=== PATIENT | female | born 1950 | race Caucasian/White ===

== ENCOUNTER → 2016-09-04 | Outpatient (CLI) | payer OTHER ==
[~2016-09-04] MED LIST: CELEXA; GLUCOPHAGE XR500 MG; LIPITOR; LOPID600 MG; NEXIUM; SYNTHROID
== END ==
LOC: RAD 08-31 18:15
DX: Z12.31 Encounter for screening mammogram for malignant neoplasm of breast (principal)

== ENCOUNTER → 2017-01-17 | Outpatient (CLI) | payer OTHER | LOC: ULTRA 13:59 | DX: N63 Unspecified lump in breast (principal) ==

== ENCOUNTER → 2017-04-11 | Outpatient (CLI) | payer OTHER | LOC: RAD 14:18 | DX: E04.1 Nontoxic single thyroid nodule (principal); M47.895 Other spondylosis, thoracolumbar region; Z79.899 Other long term (current) drug therapy; R06.02 Shortness of breath ==

== ENCOUNTER → 2017-12-05 | Outpatient (CLI) | payer OTHER | LOC: RAD 01:43 | DX: Z12.31 Encounter for screening mammogram for malignant neoplasm of breast (principal) ==

== ENCOUNTER → 2018-11-06 | Outpatient (CLI) | payer OTHER | LOC: RAD 13:14 | DX: R92.8 Other abnormal and inconclusive findings on diagnostic imaging of breast (principal); Z85.3 Personal history of malignant neoplasm of breast ==

== ENCOUNTER → 2018-12-18 | Outpatient (CLI) | payer OTHER | LOC: RAD 13:01 | DX: Z12.31 Encounter for screening mammogram for malignant neoplasm of breast (principal) ==

== ENCOUNTER → 2018-12-26 | Outpatient (CLI) | payer OTHER | LOC: ULTRA 00:22 → RAD 00:22 → ULTRA 15:20 | DX: N63.20 Unspecified lump in the left breast, unspecified quadrant (principal) ==

== ENCOUNTER → 2019-06-04 | Outpatient (CLI) | payer OTHER ==
[~2019-06-04] MED LIST changes: +AMARYL4 MG PO; +ASA81BEC PO; +CELEXA20 MG PO; +CO-ENZYME Q-1010 MG PO; +FISH OIL 1,0001 EAC9 PO; +LEVOTHYROXIN0.137 M1 PO; +LOSARTAN POTAS100 MG PO; +MULTI VITAMIN1 EACH PO; +NEXIUM40 MG PO; +NORVASC5 MG PO; +VITAMIN D32000 UNIT PO; +ZOCOR20 MG PO
== END ==
LOC: BC 09:08
DX: E04.2 Nontoxic multinodular goiter (principal); N63.42 Unspecified lump in left breast, subareolar

== ENCOUNTER → 2019-06-11 | Outpatient (CLI) | payer OTHER ==
--- NOTE | 2019-06-15 13:08 | PATH ---
[facility] [place] [address] PATHOLOGY RPT PROCEDURE Name: COLEEN ROME Room #: REG [facility].#: [id number] Admission: 06/11/19 Date of : 46 Discharge: Report #: [id number] Path Case #: [id number] Note [facility] Accession Number: [id number] TESTS RESULT FLAG UNITS REF RANGE LAB Clinician Provided Cytology Information No. of containers..01 Other (Miscellaneous) Source: MID NODULE THYROID DIAGNOSIS: MID NODULE THYROID, FINE NEEDLE ASPIRATION NEGATIVE FOR MALIGNANT CELLS. BETHESDA CATEGORY II. SPECIMEN CONSISTS OF ABUNDANT GROUPS OF FOLLICULAR CELLS, HEMOSIDERIN-LADEN MACROPHAGES, SCANT COLLOID AND BLOOD. THE PATTERN IS COMPATIBLE WITH ADENOMATOID NODULE. COLLOID IS PRESENT. THIS INTERPRETATION INCLUDES EVALUATION OF A CELL BLOCK. Comment: Examination shows groups of macro and microfollicles with scant colloid and rare hemosiderin-laden macrophages. 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 Nuclear features of papillary thyroid carcinoma are not identified. Please note sample may not be entirely customer engagement representative. Correlate clinically and follow-up as indicated. Pathologist ICD10: 02 E04.1 Signed out by: 02 Lourdes Thompson MD, Pathologist NPI- [id number] Performed by: Ernestina De Paz, Hereditary Cancer Program Coordinator ([facility]) Gross description: 09 20 ML, DEMOND, CLEAR /LCS 09/01/1840 0000 Local FLAG LEGEND: L-Low Normal,H-High Normal,LL-Alert Low,HH-Alert High <-Panic Low,>-Panic High,A-Abnormal,AA-Critical Abnormal Performed at: [facility] [address] [place] [address] Edward Brandt MD, 02 [facility] [address] [address] [address] PATHOLOGY RPT PROCEDURE Name: COLEEN ROME Room #: REG [facility].#: [id number] Admission: 06/11/19 Date of : 46 Discharge: Report #: [id number] Path Case #: [id number] Lourdes Thompson MD, Specimen Comment: A courtesy copy of this report has been sent to Specimen Comment: [phone]. Specimen Comment: Report sent to Specimen Comment: A duplicate report has been generated due to demographic updates. Performed at: 01 [facility] [id number], [place], [place] [id number] MD Edward Brandt MD Phone: [phone]
== END | disposition home or self-care (01) ==
LOC: ULTRA 10:05
DX: E04.1 Nontoxic single thyroid nodule (principal); Z98.890 Other specified postprocedural states; Z79.899 Other long term (current) drug therapy; Z88.2 Allergy status to sulfonamides; Z88.6 Allergy status to analgesic agent; Z88.8 Allergy status to other drugs, medicaments and biological substances; Z88.0 Allergy status to penicillin

== ENCOUNTER → 2019-06-23 | Outpatient (CLI) | payer OTHER ==
[~2019-06-23] MED LIST changes: -AMARYL4 MG PO; -ASA81BEC PO; -CELEXA20 MG PO; -CO-ENZYME Q-1010 MG PO; -FISH OIL 1,0001 EAC9 PO; -LEVOTHYROXIN0.137 M1 PO; -LOSARTAN POTAS100 MG PO; -MULTI VITAMIN1 EACH PO; -NEXIUM40 MG PO; -NORVASC5 MG PO; -VITAMIN D32000 UNIT PO; -ZOCOR20 MG PO
--- NOTE | 2019-06-29 12:06 | PATH ---
[facility] [address] [address] PATHOLOGY RPT PROCEDURE Name: SANTY ROME Room #: REG [facility] M.R.#: [id number] Admission: 06/23/19 Date of : 46 Discharge: Report #: [id number] Path Case #: [id number] [facility] Accession Number: [id number] . 01 Material submitted: . breast - LEFT MEDIAL BREAST NODULE. Modifiers: left . 01 Clinical history: . Left breast nodule History of right breast cancer . 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 - BACKGROUND BREAST TISSUE SHOWING PROLIFERATIVE FIBROCYSTIC CHANGES INCLUDING RADIAL SCAR, COLUMNAR CELL HYPERPLASIA ASSOCIATED WITH ATYPICAL DUCTAL HYPERPLASIA WELL DUCTAL CARCINOMA IN SITU (OF CRIBRIFORM TYPE). . (IUV:mml; 06/24/2019) QLM 06/24/2019 1412 Local . 02 Comment: Specimen type: Needle core biopsy Tumor site: Left breast medial Tumor quantitation: 0.5 cm Histologic type: Invasive ductal carcinoma Histologic grade: Grade 2 Tubules, nuclei and mitoses: 3, 2 and 1, respectively LVSI: Not identified Microcalcifications: Not identified Markers: ER, MS, HER-2/milena and Ki-67 Block: A1 . Co-review: Slide A1-level 7, A2-level [address] Karin Sparrow . Findings of this case telephoned to Ms. Dorene Bailey in our breast center on the morning of 06/24/2019. . (IUV:mml; 06/24/2019) . 02 Addendum: . Special studies report received from [facility], [address] [place] [address], [address], [place], [address], on case [id number], labeled with their number [id number], dated 06/26/2019. [place] [address] PATHOLOGY RPT PROCEDURE Name: SANTY ROME Room #: REG GIOVANNI Fraga#: [id number] Admission: 06/23/19 Date of : 46 Discharge: Report #: [id number] Path Case #: [id number] Breast/Prognostic Marker Analysis . Specimen Site: Lt Breast, Medial Nodule, Needle Core Biopsy, Breast Cancer Specimen ID #: [id number] . ER (Estrogen Receptor) Present/Positive Percent: 96.00% Analysis: Manual Comments: Staining Intensity: Strong . MS (Progesterone Receptor) Present/Positive Percent: 85.00% Analysis: Manual Comments: Staining Intensity: Weak To Strong . HER2 Not Over-Expressed Score: 1+ Analysis: Manual . Ki-67 Borderline Proliferation Percent: 20.00% Analysis: Manual . Type of Fixative: 10% Neutral Buffered Formalin . at [facility]. Anuj Malone MD Pathologist . Methodology The HER2 Receptor protein expression is analyzed using the Lyons HER2 rabbit monoclonal antibody (clone 4B5). This assay is used for diagnostic determination of the HER2 protein over-expression in paraffin embedded, formalin fixed breast cancer tissue on the [employer] Benchmark. The specimen is processed using a secondary antibody-HRP conjugate detection system. The membrane staining of the tumor is determined either by manual score or image analysis. This antibody is intended for in vitro diagnostic use. The score is reported as 0, 1+, 2+, or 3+. This test is used for clinical purposes. . A rabbit monoclonal antibody (clone SP1) that recognized the Estrogen Receptor is used to perform immunohistochemistry on routinely fixed (formalin) paraffin embedded tissue on the [employer] Benchmark[place] [address] PATHOLOGY RPT PROCEDURE Name: WILDSANTY HARLEYE Room #: REG [facility] Fraga#: [id number] Admission: 06/23/19 Date of : 46 Discharge: Report #: [id number] Path Case #: [id number] is processed using a secondary antibody-HRP conjugate detection system. The percentage of stained tumor nuclei is determined either manually or by image analysis. This test is intended for in vitro diagnostic use. This test is used for clinical purposes. . A rabbit monoclonal antibody (clone 1E2) that recognized the Progesterone Receptor is used to perform immunohistochemistry on routinely fixed (formalin) paraffin embedded tissue on the [employer]ons Benchmark. The specimen is processed using a secondary antibody-HRP conjugate detection system. The percentage of stained tumor nuclei is determined either manually or by image analysis. This test is intended for in vitro diagnostic use. This test is used for clinical purposes. . A rabbit monoclonal antibody (clone 30-9) that recognized Ki67 is used to perform immunohistochemistry on routinely fixed (formalin) paraffin embedded tissue on the [employer]ons Benchmark. The specimen is processed using a secondary antibody-HRP conjugate detection system. The percentage of stained tumor nuclei is determined either manually or by image analysis. This test is intended for in vitro diagnostic use. This test is used for clinical purposes. . Intended Use: This antibody is intended for in vitro diagnostic (IVD) use. HER2 (4B5) is a rabbit monoclonal antibody intended for the semi-quantitative detection of HER2 antigen in sections of formalin-fixed, paraffin embedded normal and neoplastic tissue. . This antibody is intended for in vitro diagnostic (IVD) use. Estrogen Receptor (ER) (SP1) is a rabbit monoclonal antibody (IgG) that is intended for the qualitative detection of estrogen receptor (ER) antigen in sections of formalin-fixed, paraffin-embedded tissue. ER is a rabbit monoclonal antibody that recognizes human estrogen receptor alpha. . This antibody is intended for in vitro diagnostic (IVD) use. Progesterone Receptor (MS) (1E2) is a rabbit monoclonal antibody (IgG) that is intended for the qualitative detection of progesterone receptor (MS) antigen in sections of formalin fixed, paraffin embedded tissue. MS is a rabbit monoclonal antibody that recognizes the A and B forms of the human progesterone receptor. . This antibody is intended for in vitro diagnostic (IVD) use. Ki-67 (30-9) is a rabbit monoclonal antibody (IgG) directed against C-terminal portion of Ki-67 antigen. Staining for Ki-67 can be used to aid in assessing the proliferative activity of normal and neoplastic tissue. Ki-67 is a nuclear protein expressed in proliferating cells. During the cell cycle, the Ki-67 antigen is present in the G1, S, G2 and M phase but is absent in the G0 (quiescent phase). . [facility] [address] [place] [address] PATHOLOGY RPT PROCEDURE Name: SANTY ROME Room #: REG [facility] M..#: [id number] Admission: 06/23/19 Date of : 46 Discharge: Report #: [id number] Path Case #: [id number] . Disclaimer: This Test was performed by [employer] [employer] at [address], [facility]. . [facility] [employer] is a business unit of [employer]. a wholly-owned subsidiary of [employer]. . This assay has not been validated on decalcified tissues. Results should be interpreted with caution if this specimen was decalcified given the likelihood of false negativity on decalcified specimens. . Any image(s) that accompany this report is/are a utility sales representative image(s) only and should not be used to render a diagnosis. . This interpretation is contingent on the specimen and the clinical information received. . For any special tests/stains performed, known positive cells or tissues are tested with each marker and examined to ensure positivity. Positive and negative internal controls, if present, react appropriately. . This analysis is an adjunct to the evaluation of the referring physician and does not represent a final diagnosis. . The immunohistochemistry tests performed at [employer] were validated on tissue fixed in 10% neutral buffered formalin. The performance characteristics of the tests performed on tissue processed in other fixatives is not known. . HER2 testing at [employer] is performed in compliance with the 2018 updated ASCO/CAP Clinical Practice Guideline Focused Update. If the result is EQUIVOCAL (2+), it must be confirmed by an alternative assay such as FISH or Dual BENNY. . REF: Julissa NUNO, RUBIA Valadez et al: Human Epidermal Growth Factor Receptor 2 Testing in Breast Cancer: ASCO/CAP Clinical Practice Guideline Focused Update. J Clin Oncol 36:6879-4672, 2018. . HER2 and ER/MS ASCO/CAP guidelines require fixation in neutral buffered formalin for a minimum of 6 and a maximum of 72 hours. Fixation times less than 6 hours may not adequately preserve cell proteins. Fixation times longer than 72 hours may cause excess cross-linking of proteins reducing the antigen available for staining. Either scenario can cause reduced staining; hence false negative results are possible and should be considered for these situations if the HER2 IHC score is less than 3+ or ER or MS is negative (no staining or <1% positive). It is recommended that [address] [address] PATHOLOGY RPT PROCEDURE Name: WILDSANTY JEFFERSON Room #: REG CLManjit Fraga#: [id number] Admission: 06/23/19 Date of : 46 Discharge: Report #: [id number] Path Case #: [id number] specimens fixed longer than 72 hours with HER2 IHC scores less than 3+ be confirmed by HER2 FISH or Dual BENNY. The time from biopsy/excision to fixation in formalin (cold ischemic time) must be less than 1 hour. Time to fixation (cold ischemic time) greater than 1 hour should be interpreted with caution. HER2 testing, mainly HER2 by FISH, is particularly vulnerable since excessive cold ischemic time results in preferential loss of HER2 probe signals that may lead to false negative results. . SCORE STAINING PATTERN IN TUMOR CELLS INTERPRETATION RESULTS 0 No staining observed or incomplete, faint membrane staining in less than or equal to 10% of tumor cells. Negative 1+ Incomplete, faint membrane staining in greater than 10% of tumor cells. Negative 2+ Weak to moderate complete membrane staining observed in greater than 10% of tumor cells. Equivocal* *Must be confirmed by alternative assay (IHC/FISH/Dual BENNY) 3+ Intense, complete membrane staining in greater than 10% of tumor cells. Positive . A complete copy of the report is on file. . Professional and Technical services performed by [employer]. at [address] [place] [address]. . (IUV:amj 06/26/2019) . LBQ/06/26/2019 Addendum Electronically Signed by Lourdes Thompson MD, Pathologist . 02 Electronically signed: . Lourdes Thompson MD, Pathologist NPI- [id number] . 01 Gross description: . Received in formalin labeled "[place], Santy, left," and additionally labeled on the requisition as "medial breast," are multiple needle cores of yellow-morris fibrofatty tissue measuring 5.8 x 4.9 x 0.8 cm in aggregate dimensions. The tissue is submitted in its entirety in cassettes A1-A3. The cold ischemic time is 2 minutes. The total formalin fixation time is 10 hours. (TSD; 06/23/2019) TOB/TOB 06/24/[address] [address] PATHOLOGY RPT PROCEDURE Name: SANTY ROME Room #: REG GIOVANNI Navarro.#: [id number] Admission: 06/23/19 Date of : 46 Discharge: Report #: [id number] Path Case #: [id number] . 02 Pathologist provided ICD-10: C50.912, D05.12, N60.12, N60.92 . 02 CPT . 550482 Specimen Comment: A courtesy copy of this report has been sent to Specimen Comment: [phone], . Specimen Comment: Report sent to / DR MURILLO Performed at: [address] [facility] [address], [place], [place] [id number] MD Edward Brandt MD Phone: [phone] Performed at: [address] [facility] [address] [id number] MD Lourdes Thompson MD Phone: [phone]
== END | disposition home or self-care (01) ==
LOC: RAD 01:58
DX: R92.2 Inconclusive mammogram (principal); C50.912 Malignant neoplasm of unspecified site of left female breast; N60.12 Diffuse cystic mastopathy of left breast; N60.92 Unspecified benign mammary dysplasia of left breast; Z98.890 Other specified postprocedural states; Z88.0 Allergy status to penicillin; Z88.2 Allergy status to sulfonamides; Z88.8 Allergy status to other drugs, medicaments and biological substances; Z79.899 Other long term (current) drug therapy

== ENCOUNTER → 2019-07-23 | Outpatient (CLI) | payer OTHER ==
[~2019-07-23] VITALS: Ht 167.6 cm; Wt 102.5 kg
[~2019-07-23] MED LIST changes: +AMARYL4 MG PO; +ASA81BEC PO; +CELEXA20 MG PO; +CO-ENZYME Q-1010 MG PO; +FISH OIL 1,0001 EAC9 PO; +LEVOTHYROXIN0.137 M1 PO; +LOSARTAN POTAS100 MG PO; +MULTI VITAMIN1 EACH PO; +NEXIUM40 MG PO; +NORVASC5 MG PO; +VITAMIN D32000 UNIT PO; +ZOCOR20 MG PO
--- NOTE | 2019-07-27 17:06 | PATH ---
[facility] [address] [address] PATHOLOGY RPT PROCEDURE Name: SANTY ROME Room #: REG [facility] M..#: [id number] Admission: 07/23/19 Date of : 46 Discharge: Report #: [id number] Path Case #: [id number] L[facility] Accession Number: [id number] . 01 Material submitted: . PART A: colon - POLYP AT PROXIMAL ASCENDING COLON. Modifiers: proximal, ascending PART B: colon - POLYP AT MID TRANSVERSE COLON. Modifiers: mid, transverse PART C: colon - POLYP AT 50CM X2 PART D: colon - POLYP AT 20CM . 01 Clinical history: . Preop DX: Screening Postop DX: Colon polyps, small hemorrhoids . 02 Diagnosis: A. Polyp, at proximal ascending colon, endoscopic biopsy: - Inflamed hyperplastic polyp. - Negative for dysplasia. . B. Polyp, at mid transverse colon, endoscopic biopsy: - Minute tubular adenoma. - Negative for high-grade dysplasia. . C. Polyp x2, at 50 cm, endoscopic biopsy: - Tubular adenoma identified in multiple fragments. - Negative for high-grade dysplasia. . D. Polyp, at 20 cm, endoscopic biopsy: - Hyperplastic polyp. - Negative for dysplasia. . (IUV:primary clinician; 07/27/2019) MBR 07/27/2019 1307 Local . 02 Electronically signed: . Lourdes Thompson MD, Pathologist NPI- [id number] . 01 Gross description: . A. Received in formalin labeled "Santy Rome, polyp at proximal ascending," are two segments of botello-brown soft tissue measuring 0.3 x 0.2 x 0.1 cm and 0.4 x 0.3 x 0.2 cm in greatest dimensions. The specimen is submitted entirely in cassette A1. . B. Received in formalin labeled "Santy Rome, polyp at mid-transverse colon," is a segment of botello-brown soft tissue measuring 0.3 x 0.2 x 0.[address] [address] PATHOLOGY RPT PROCEDURE Name: WILDSANTY JEFFERSON [facility] [place] [id number] Admission: 07/23/19 Date of : 46 Discharge: Report #: [id number] Path Case #: [id number] in greatest dimensions. The specimen is submitted entirely in cassette B1. . C. Received in formalin labeled "Santy Rome, polyp at 50 cm x2," are two segments of botello-brown soft tissue measuring 0.4 x 0.3 x 0.2 cm and 0.5 x 0.4 x 0.2 cm in greatest dimensions admixed with scant yellow mucoid material. The specimen is submitted entirely in cassette C1. . D. Received in formalin labeled "Santy Rome, polyp at 20 cm," are two segments of botello-brown soft tissue measuring 0.2 x 0.2 x 0.1 cm and 0.4 x 0.3 x 0.2 cm in greatest dimensions. The specimen is submitted entirely in cassette D1. (DAC; 07/24/2019) XDC/XDC 07/24/2019 1135 Local . 02 Pathologist provided ICD-10: K63.5, D12.3, D12.6 . 02 CPT . 880277, 336678, 100177, 052981 Specimen Comment: A courtesy copy of this report has been sent to [phone] Specimen Comment: [phone] Specimen Comment: Report sent to and Performed at: [address] [facility], [place], [place] [id number] MD Edward Brandt MD Phone: [phone] Performed at: [address] [facility] [id number] MD Lourdes Thompson MD Phone: [phone]
--- NOTE | 2019-08-04 13:15 | P ---
[facility] [place] [address] [address] [address] PROCEDURE REPORT Name: COLEEN ROME Room #: REG [facility].#: [id number] Admission: 07/23/19 Attend Phys: Сергей Elkins MD Discharge: Date of : 46 Report #: [id number] THIS REPORT FOR: //name// CC: Cori Elkins OUTPATIENT COLONOSCOPY BRIEF HISTORY: The patient is a 69-year-old woman with a history of colon adenomas. She also recently was discovered to have recurrent breast cancer. Father had multiple colon polyps. PREOPERATIVE DIAGNOSIS: High risk screening colonoscopy due to history of colon polyps and recurrent breast cancer. POSTOPERATIVE DIAGNOSES: 1. Multiple diminutive colon polyps. 2. Small internal hemorrhoids. MEDICATIONS: Deep sedation with propofol per anesthesia. SPECIMENS: 1. Polyp, proximal ascending colon. 2. Mid transverse colon polyp. 3. Polyp at 50 cm x 2. 4. Polyp at 20 cm. ESTIMATED BLOOD LOSS: 3 mL. PROCEDURE: Colonoscopy to cecum and terminal ileum with biopsy. FINDINGS: Prior to propofol sedation, the procedure of colonoscopy was discussed with the patient as well as potential risks and its complications. She indicates she understands and desires to proceed. DESCRIPTION OF PROCEDURE: With the patient in left lateral decubitus position, digital examination was completed, which revealed no abnormalities. Subsequently, the Olympus video colonoscope was introduced in the rectum, advanced under direct vision to the cecum. Done with minimal difficulty. The cecum was identified by the ileocecal valve and the appendiceal orifice. I was able to visualize the distal segment of terminal ileum, which was inspected and noted to be unremarkable. At that point, the scope was slowly withdrawn and careful circumferential views were obtained. Upon slow withdrawal of the scope, the prep was excellent. The mucosa was within normal limits, normal vascular pattern, normal light reflex. As we withdrew the scope, a diminutive polyp was seen in the proximal ascending colon and removed with biopsy forceps. Scope was [facility] [address] [address] PROCEDURE REPORT Name: COLEEN ROME Room #: REG [facility].#: [id number] Admission: 07/23/19 Attend Phys: Сергей Elkins MD Discharge: Date of : 46 Report #: [id number] further withdrawn and no additional abnormalities were noted until we reached the mid transverse colon and 2 more diminutive polyps were seen and removed with biopsy forceps. No additional abnormalities were noted until about 50 cm, at which point, 2 diminutive polyps were seen and removed with biopsy forceps. At 20 cm, another diminutive polyp was seen and removed with biopsy forceps. Scope was withdrawn in the rectum, no abnormalities were seen. Upon retroflexion, very small internal hemorrhoids were seen. Scope was withdrawn. The patient tolerated the procedure well. CONDITION OF THE PATIENT UPON DISCHARGE: Following procedure, the patient drowsy, aroused, conversant and will be discharged home when fully ambulatory. INSTRUCTIONS TO THE PATIENT AND FAMILY AT THE TIME OF DISCHARGE: We will follow up on the pathology of the polyps. If 3 or more adenomas, she should return in 3 years, otherwise return in 5 years for a high risk screening colonoscopy. Last colonoscopy was 4-1/2 years ago. Withdrawal time from the cecum was 15 minutes and 2 seconds. <ELECTRONICALLY SIGNED> By: Сергей Elkins MD 08/04/19 1315 0942 1025 Сергей Elkins MD /nt
== END | disposition home or self-care (01) ==
LOC: GI 08:22
DX: Z12.11 Encounter for screening for malignant neoplasm of colon (principal); Z86.010 Personal history of colon polyps; Z83.71 Family history of colonic polyps; D12.3 Benign neoplasm of transverse colon; D12.5 Benign neoplasm of sigmoid colon; K51.40 Inflammatory polyps of colon without complications; K64.8 Other hemorrhoids; F32.9 Major depressive disorder, single episode, unspecified; I10 Essential (primary) hypertension; C50.912 Malignant neoplasm of unspecified site of left female breast; E78.5 Hyperlipidemia, unspecified; K21.9 Gastro-esophageal reflux disease without esophagitis; E11.9 Type 2 diabetes mellitus without complications; Z98.890 Other specified postprocedural states; Z79.899 Other long term (current) drug therapy; Z96.641 Presence of right artificial hip joint; Z87.891 Personal history of nicotine dependence; Z96.653 Presence of artificial knee joint, bilateral; Z88.0 Allergy status to penicillin; Z88.2 Allergy status to sulfonamides; Z88.8 Allergy status to other drugs, medicaments and biological substances; Z79.82 Long term (current) use of aspirin
CPT/HCPCS: 62110; 62900

== ENCOUNTER → 2020-06-23 | Outpatient (CLI) | payer OTHER | LOC: BC 10:48 | PROVIDERS: ATTEND Internal Medicine | DX: Z12.31 Encounter for screening mammogram for malignant neoplasm of breast (principal) ==

== ENCOUNTER → 2021-06-13 | Outpatient (CLI) | payer OTHER | LOC: BC 10:13 | PROVIDERS: ATTEND Internal Medicine | DX: Z12.31 Encounter for screening mammogram for malignant neoplasm of breast (principal); Z85.3 Personal history of malignant neoplasm of breast ==

== ENCOUNTER → 2021-09-05 | Outpatient (CLI) | payer OTHER | LOC: ULTRA 08:54 | PROVIDERS: ATTEND Internal Medicine | DX: C50.312 Malignant neoplasm of lower-inner quadrant of left female breast (principal); E04.2 Nontoxic multinodular goiter; I10 Essential (primary) hypertension; E78.2 Mixed hyperlipidemia; E11.29 Type 2 diabetes mellitus with other diabetic kidney complication; G62.9 Polyneuropathy, unspecified; R68.89 Other general symptoms and signs ==